=== PATIENT | female | born 1965 | race Caucasian/White ===

== ENCOUNTER 2016-10-22 10:43 | Emergency (ER) | payer MEDICAID ==
--- NOTE | 2016-10-22 11:08 | EDPHY ---
H & P Smoking Status: Current every day smoker Time Seen by Provider: 10/22/16 10:53 HPI/ROS: CHIEF COMPLAINT: Suicidal, hearing voices HISTORY OF PRESENT ILLNESS: 51-year-old female presents to the emergency department voluntarily feeling increasingly depressed and suicidal. The patient has a history of bipolar and she has been compliant with her medications. She has felt increasingly depressed and is hearing voices. This is not uncommon for her but she feels that the voices are getting worse. She feels suicidal in her plan is to overdose on her medications. She has done this in the past. She is not sleeping well or eating well. 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 She is currently living with her parents in [place]. She has no other physical complaints currently. Denies chest pain or difficulty breathing. Denies abdominal pain. Denies neck or back pain. Denies headaches. REVIEW OF SYSTEMS: Constitutional: No fever, no chills. Eyes: No double or blurry vision. ENT: No sore throat. Respiratory: No cough, no shortness of breath. Cardiac: No chest pain. Gastrointestinal: No abdominal pain, vomiting or diarrhea. Genitourinary: No dysuria. Musculoskeletal: No neck or back pain. Skin: No rashes. Neurological: No headache. (Sharmila Montero) Past Medical/Surgical History: Bipolar, COPD, smoker (Sharmila Montero) Social History: Lives with her parents in [place] (Sharmila Montero) Physical Exam: General Appearance: Alert, no distress. Vital signs are stable. Afebrile. Eyes: Pupils equal and round. Extraocular motions are all intact. ENT: Mouth: Mucous membranes moist. Respiratory: No wheezing, rhonchi, or rales, lungs are clear to auscultation. Cardiovascular: Regular rate and rhythm. Gastrointestinal: Abdomen is soft and nontender, no masses, no rebound or guarding, bowel sounds normal. Neurological: Alert and oriented x 3, cranial nerves II through XII grossly intact Skin: Warm and dry, no rashes. Musculoskeletal: Nontender to palpate along the cervical, thoracic or lumbar spine. Neck is supple. Extremities: Full range of motion and no peripheral edema. Psychiatric: Patient is oriented X 3, there is no agitation. (Sharmila Montero) Constitutional: Initial Vital Signs Temperature (C) 37 C 10/22/16 10:45 Heart Rate 85 10/22/16 10:45 Respiratory Rate 18 10/22/16 10:45 Blood Pressure 124/81 H 10/22/16 10:45 O2 Sat (%) 97 10/22/16 10:45 O2 Delivery Mode Room Air Allergies/Adverse Reactions: Penicillins Allergy (Verified 10/22/16 10:48) Home Medications: Medication Instructions Recorded Wyanet Carbonate [Wyanet 600 mg PO BID 07/27/15 Carbonate Cap 300 mg (RX)] Cariprazine Hydrochloride [Vraylar] 3 mg PO 10/22/16 Perphenazine [Trilafon 2mg (RX)] 2 mg PO 10/22/16 Topiramate [Topamax 100MG (*)] 100 mg PO BID 10/22/16 Medical Decision Making ED Course/Re-evaluation: The patient presents voluntarily with a history of bipolar and feeling suicidal. She was placed on a detainer by myself. Once she is medically cleared she will be evaluated by mental health. (Sharmila Montero) I took over care of this patient at 4:00 p.m.. This patient is here for bipolar disorder with hallucinations and psychotic features. The patient is awaiting evaluation. 5:45 p.m., patient seen and evaluated by [facility]. Plan is to transfer the patient to [facility] for further care. [facility] will arrange ambulance transport. 12:00 a.m., informed patient will now be admitted to a facility called [facility] in [place]. I have filled out the appropriate transfer paperwork. The patient's remaining emergency department course under my care has been uneventful. She was transferred in stable condition. (Rena Aldana) Differential Diagnosis: Depression including functional and major depression, situational depression, medication side effect, drugs and alcohol abuse. (Sharmila Montero) Other Provider: I evaluated and participated in the management of the patient. I also evaluated the patient independently. My co-signature indicates that I have reviewed this chart and I agree with the findings and plan of care as documented. My personal H&P findings include: The patient presents to the ED with a history of worsening bipolar mood disorder complicated by depression and psychosis. The patient has been medically cleared for psychiatric evaluation. The patient has been placed on an M1 psychiatric hold by myself at 3:40 p.m. as she has active thoughts of suicide, hallucinations and worsening depression. The patient is currently awaiting psychiatric evaluation. The patient will be turned over to Dr. Aldana at shift change at 3:40 p.m. (Rivera Brito) - Data Points Laboratory Results: Laboratory Results 10/22/16 11:02 10/22/16 11:02 Departure - Departure Disposition: Other Psych, Not [facility] Clinical Impression: Suicidal ideation, Bipolar 1 disorder Condition: Good Instructions: Bipolar Disorder (ED) Additional Instructions: You will be transferred to [facility] under the care of [facility]. Return to the emergency department for worsening symptoms or other serious concerns. Referrals: [facility] [Outside] - As per Instructions
[2016-10-22 11:13] LABS: % IMMATURE GRANULYOCYTES 0.2 % (0.0-1.1); ABSOLUTE IMMATURE GRANULOCYTES 0.02 10^3/uL (0.00-0.10); ADD DIFF? NO; ADD MORPH? NO; ADD SCAN? NO; ATYPICAL LYMPHOCYTE FLAG 10 (0-99); FRAGMENT RBC FLAG 0 (0-99); HEMATOCRIT 44.8 % (38.0-47.0); HEMOGLOBIN 14.9 g/dL (12.6-16.3); LEFT SHIFT FLG 0 (0-99); LIPEMIA HEMOLYSIS FLAG 80 (0-99); MEAN CELL HEMOGLOBIN 30.2 pg (27.9-34.1); MEAN CELL HEMOGLOBIN CONCENTR. 33.3 g/dL (32.4-36.7); MEAN CELL VOLUME 90.9 fL (81.5-99.8); MEAN PLATELET VOLUME 10.4 fL (8.7-11.7); PLATELET CLUMPS FLAG 0 (0-99); PLATELET COUNT 264 10^3/uL (150-400); RED BLOOD CELL COUNT 4.93 10^6/uL (4.18-5.33); RED CELL DISTRIBUTION WIDTH 12.6 % (11.5-15.2)
[2016-10-22 11:30] LABS: ANION GAP 10 mEq/L (8-16); CALCIUM 9.1 mg/dL (8.5-10.4); CARBON DIOXIDE 22 mEq/l (22-31); CHLORIDE 111 mEq/L (97-110); ETHANOL SERUM < 10 mg/dL (0-10); GLOMERULAR FILTRATION RATE 59; GLUCOSE 88 mg/dL (70-100); LITHIUM 0.4 mEq/L (0.6-1.2); POTASSIUM 4.4 mEq/L (3.5-5.2); SODIUM 143 mEq/L (134-144)
[2016-10-23 07:25] VITALS: BP 114/82; PULSE 82; RESP 18; TEMP 97.7; O2SAT 95
== END 2016-10-23 07:22 ==
DX: R45.851 Suicidal ideations (principal); F31.9 Bipolar disorder, unspecified; J44.9 Chronic obstructive pulmonary disease, unspecified; F17.200 Nicotine dependence, unspecified, uncomplicated
CPT/HCPCS: 80305; G0480